=== PATIENT | female | born 1995 | race Caucasian/White ===

== ENCOUNTER 2017-12-18 07:57 | Emergency (ER) | payer SELFPAY ==
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
== END 2017-12-18 09:09 | disposition home or self-care (01) ==
LOC: ER 07:57
DX: L55.0 Sunburn of first degree (principal); Z72.0 Tobacco use; Z91.048 Other nonmedicinal substance allergy status
CPT/HCPCS: 99281

== ENCOUNTER 2019-04-27 18:29 | Emergency (ER) | payer SELFPAY ==
--- NOTE | 2019-04-27 19:07 | EDPHYS ---
Physician Documentation [facility] Name: Jessica Fisher Age: 23 yrs Sex: Female : 1995 Arrival Date: 04/27/2019 Time: 18:31 Bed 19 Private MD: ED Physician Avelino Quinn HPI: 04/27 19:01 This 23 yrs old Female presents to ER via Ambulatory with complaints of Boil. mónica 19:01 The patient presents with an abscess of the right scapular area, The patient presents mónica with cellulitis of the right scapular area, the patient presents with a swollen area of the right scapular area. Description: The affected area is small, confluent, erythematous, fluctuant. Onset: The symptoms/episode began/occurred 2 day(s) ago. Possible cause(s): unknown. Associated signs and symptoms: The patient has no apparent associated signs or symptoms. Modifying factors: the symptoms are alleviated by remaining still, the symptoms are aggravated by pressure, squeezing the lesion and expressing the contents, touching. Severity of symptoms: At their worst the symptoms were mild, in the emergency department the symptoms are unchanged. The patient has not experienced similar symptoms in the past. 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 - Social history:: Smoking status: Patient uses tobacco products, smokes one-half pack cigarettes per day. - Ebola Screening: : No symptoms or risks identified at this time. - Family history:: not pertinent. ROS: 19:01 Constitutional: Negative for fever, chills, and weight loss, Eyes: Negative for injury, mónica pain, redness, and discharge, ENT: Negative for injury, pain, and discharge, Neck: Negative for injury, pain, and swelling, Cardiovascular: Negative for chest pain, palpitations, and edema, Respiratory: Negative for shortness of breath, cough, wheezing, and pleuritic chest pain, Abdomen/GI: Negative for abdominal pain, nausea, vomiting, diarrhea, and constipation, Back: Negative for injury and pain, : Negative for injury, bleeding, discharge, and swelling, MS/Extremity: Negative for injury and deformity, Neuro: Negative for headache, weakness, numbness, tingling, and seizure, Psych: Negative for depression, anxiety, suicide ideation, homicidal ideation, and hallucinations, Allergy/Immunology: Negative for hives, rash, and allergies, Endocrine: Negative for neck swelling, polydipsia, polyuria, polyphagia, and marked weight changes, Hematologic/Lymphatic: Negative for swollen nodes, abnormal bleeding, and unusual bruising. 19:01 Skin: Positive for of the right scapular area. Exam: 19:01 Constitutional: This is a well developed, well nourished patient who is awake, alert, mónica and in no acute distress. Head/Face: Normocephalic, atraumatic. Eyes: Pupils equal round and reactive to light, extra-ocular motions intact. Lids and lashes normal. Conjunctiva and sclera are non-icteric and not injected. Cornea within normal limits. Periorbital areas with no swelling, redness, or edema. ENT: Nares patent. No nasal discharge, no septal abnormalities noted. Tympanic membranes are normal and external auditory canals are clear. Oropharynx with no redness, swelling, or masses, exudates, or evidence of obstruction, uvula midline. Mucous membranes moist. Neck: Trachea midline, no thyromegaly or masses palpated, and no cervical lymphadenopathy. Supple, full range of motion without nuchal rigidity, or vertebral point tenderness. No Meningismus. Chest/axilla: Normal chest wall appearance and motion. Nontender with no deformity. No lesions are appreciated. Cardiovascular: Regular rate and rhythm with a normal S1 and S2. No gallops, murmurs, or rubs. Normal PMI, no JVD. No pulse deficits. Respiratory: Lungs have equal breath sounds bilaterally, clear to auscultation and percussion. No rales, rhonchi or wheezes noted. No increased work of breathing, no retractions or nasal flaring. Abdomen/GI: Soft, non-tender, with normal bowel sounds. No distension or tympany. No guarding or rebound. No evidence of tenderness throughout. MS/ Extremity: Pulses equal, no cyanosis. Neurovascular intact. Full, normal range of motion. Neuro: Awake and alert, GCS 15, oriented to person, place, time, and situation. Cranial nerves II-XII grossly intact. Motor strength 5/5 in all extremities. Sensory grossly intact. Cerebellar exam normal. Normal gait. Psych: Awake, alert, with orientation to person, place and time. Behavior, mood, and affect are within normal limits. 19:01 Back: pain, that is mild, ROM is normal, normal spinal alignment noted. 19:01 Skin: Appearance: Color: erythematous, Temperature: warm, Moisture: normal moisture, petechiae, not noted, ecchymosis, not noted, diaphoresis is not appreciated, swelling, that are mild. Vital Signs: 18:46 BP 129 / 82; Pulse 97; Resp 16 S; Temp 98.0(TE); Pulse Ox 98% on R/A; Weight 44.45 kg aa5 (R); Height 5 ft. 1 in. (154.94 cm) (R); Pain 2/10; 18:46 Body Mass Index 18.52 (44.45 kg, 154.94 cm) aa5 MDM: 18:48 Patient medically screened. [facility] 19:04 Data reviewed: vital signs, nurses notes, lab test result(s), urinalysis, UPT: negative.[facility] 04/27 19:10 Order name: Urine Dipstick--Ancillary (enter results) [facility] 04/27 19:10 Order name: Urine --Ancillary (enter results) [facility] 04/27 19:00 Order name: Urine Dipstick-Ancillary (obtain specimen); Complete Time: 19:09 [facility] 04/27 19:00 Order name: Urine Test (obtain specimen); Complete Time: 19:09 [facility] Administered Medications: 19:14 Drug: Doxycycline 100 mg Route: PO; 19:35 Follow up: Response: No adverse reaction 19:14 Drug: Bactrim (160 mg-800 mg (DS) 1 tablet Route: PO; 19:35 Follow up: Response: No adverse reaction 19:14 Drug: [place] 5 mg-325 mg 1 tabs Route: PO; 19:35 Follow up: Response: No adverse reaction; Pain is decreased; RASS: Alert and Calm (0) Disposition: 04/27/19 19:06 Discharged to Home. Impression: Sebaceous cyst, Cutaneous abscess of back [any part, except buttock]. - Condition is Stable. - Discharge Instructions: Skin Abscess, Epidermal Cyst, [id number], Epidermal Cyst, Skin Abscess, [id number]. - Prescriptions for Tylenol- Codeine #3 300-30 mg Oral Tablet - take 2 tablets by ORAL route every 6 hours As needed; 24 tablet. Doxycycline Hyclate 100 mg Oral Tablet - take 1 tablet by ORAL route every 12 hours; 20 tablet. Bactrim DS 800- 160 mg Oral Tablet - take 1 tablet by ORAL route every 12 hours for 10 days; 20 tablet. - Medication Reconciliation Form, Thank You Letter, Antibiotic Education, Prescription Opioid Use form. - Follow up: Private Physician; When: 2 - 3 days; Reason: Recheck today's complaints, Continuance of care, Re-evaluation by your physician. Follow up: Rehan Morley MD; When: 2 - 3 days; Reason: Recheck today's complaints, Re-evaluation by your physician. - Problem is new. - Symptoms have improved. Signatures: Dispatcher [employer] EDAvelino Rossi MD MD cha Calderon, Audri, RN RN aa5 David Burnett Corrections: (The following items were deleted from the chart) 19:35 19:06 04/27/2019 19:06 Discharged to Home. Impression: Sebaceous cyst; Cutaneous wh abscess of back [any part, except buttock]. Condition is Stable. Forms are Medication Reconciliation Form, Thank You Letter, Antibiotic Education, Prescription Opioid Use. Follow up: Private Physician; When: 2 - 3 days; Reason: Recheck today's complaints, Continuance of care, Re-evaluation by your physician. Follow up: Rehan Morley; When: 2 - 3 days; Reason: Recheck today's complaints, Re-evaluation by your physician. Problem is new. Symptoms have improved. mónica
--- NOTE | 2019-04-27 19:07 | ER ---
Nurse's Notes [facility] Name: Jessica Fisher Age: 23 yrs Sex: Female : 1995 Arrival Date: 04/27/2019 Time: 18:31 Bed 19 Private MD: Diagnosis: Sebaceous cyst;Cutaneous abscess of back [any part, except buttock] Presentation: 04/27 18:45 Presenting complaint: Patient states: "I have 2 bumps around my right shoulder that aa5 have been there for a few months". Transition of care: patient was not received from another setting of care. Onset of symptoms was 2018. Risk Assessment: Do you want to hurt yourself or someone else? Patient reports no desire to harm self or others. Initial Sepsis Screen: Does the patient meet any 2 criteria? No. Patient's initial sepsis screen is negative. Does the patient have a suspected source of infection? No. Patient's initial sepsis screen is negative. Care prior to arrival: None. 18:45 Acuity: BERENICE 5 aa5 18:45 Method Of Arrival: Ambulatory aa5 Triage Assessment: 19:34 General: Behavior is calm, cooperative, appropriate for age. 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 - Social history:: Smoking status: Patient uses tobacco products, smokes one-half pack cigarettes per day. - Ebola Screening: : No symptoms or risks identified at this time. - Family history:: not pertinent. Screenin:32 Abuse screen: Denies threats or abuse. Denies injuries from another. Nutritional screening: No deficits noted. Tuberculosis screening: No symptoms or risk factors identified. Fall Risk None identified. Assessment: 19:10 General: Appears in no apparent distress. comfortable. Pain: Complains of pain in right wh scapular area Pain does not radiate. Pain currently is 8 out of 10 on a pain scale. Quality of pain is described as aching, Pain began 2 months ago. Neuro: Level of Consciousness is awake, alert, obeys commands. Cardiovascular: Capillary refill < 3 seconds. Respiratory: Airway is patent Respiratory effort is even, unlabored, Respiratory pattern is regular, symmetrical. GI: Abdomen is flat, non-distended. : No signs and/or symptoms were reported regarding the genitourinary system. EENT: No signs and/or symptoms were reported regarding the EENT system. Derm: Skin is intact, is healthy with good turgor, Skin is pink, warm \\T\\ dry. normal, Abscess located on right scapular area. Musculoskeletal: Circulation, motion, and sensation intact. Vital Signs: 18:46 BP 129 / 82; Pulse 97; Resp 16 S; Temp 98.0(TE); Pulse Ox 98% on R/A; Weight 44.45 kg aa5 (R); Height 5 ft. 1 in. (154.94 cm) (R); Pain 2/10; 18:46 Body Mass Index 18.52 (44.45 kg, 154.94 cm) aa5 ED Course: 18:31 Patient arrived in ED. as 18:45 Triage completed. aa 18:45 Arm band placed on. aa 18:48 Avelino Quinn MD is Attending Physician. mónica 19:01 Michelle Canales, COLLEEN is Primary Nurse. aj 19:05 Rehan Morley MD is Referral Physician. [facility] 19:32 Patient has correct armband on for positive identification. Bed in low position. Call light in reach. Pulse ox on. NIBP on. 19:34 No provider procedures requiring assistance completed. Patient did not have IV access wh during this emergency room visit. Administered Medications: 19:14 Drug: Doxycycline 100 mg Route: PO; 19:35 Follow up: Response: No adverse reaction 19:14 Drug: Bactrim (160 mg-800 mg (DS) 1 tablet Route: PO; 19:35 Follow up: Response: No adverse reaction 19:14 Drug: [place] 5 mg-325 mg 1 tabs Route: PO; 19:35 Follow up: Response: No adverse reaction; Pain is decreased; RASS: Alert and Calm (0) Outcome: 19:06 Discharge ordered by . [facility] 19:34 Discharged to home ambulatory. 19:34 Condition: good 19:34 Discharge instructions given to patient, Instructed on discharge instructions, follow up and referral plans. no drinking with medication, no driving heavy equipment, medication usage, POC Skin abscess and Epidermal Cyst Demonstrated understanding of instructions, follow-up care, medications, POC Prescriptions given X 3. 19:35 Patient left the ED. Signatures: Michelle Canales RN RN aj1 Avelino Quinn MD MD cha Martinez, Amelia as Calderon, Audri, COLLEEN RN aa5 David Burnett
[2019-04-27] MEDS ORDERED: DOXYCYCLINE 100 MG CAP PO ONE (19:10)
[2019-04-27] MEDS ORDERED: SMZ./TMP. 800/160 MG TABLET ONE (19:10)
[2019-04-27] MEDS ORDERED: HYDROCODONE/APAP 5/325 MG TAB ONE (19:10)
[2019-04-27 19:39] LABS: Urine Blood TRACE (NEG); Urine Glucose NEGATIVE (NEG); Urine Protein NEGATIVE (NEG); Urine Specific Gravity 1.015 (1.005-1.030); Urine pH 7.5 (5.0-7.0)
== END 2019-04-27 19:35 | disposition home or self-care (01) ==
LOC: ER 18:29
DX: L02.212 Cutaneous abscess of back [any part, except buttock and flank] (principal); L72.3 Sebaceous cyst; F17.210 Nicotine dependence, cigarettes, uncomplicated
CPT/HCPCS: 81003; 81025; 99283

== ENCOUNTER 2021-07-20 09:18 | Emergency (ER) | payer SELFPAY ==
--- OUTSIDE RECORDS SUMMARY | 2021-07-20 09:21 | XMS REPORT | Continuity of Care Document ---
:1995 Author Organization [facility] t Address [address] [place] [address] Care Team Providers Name Role Phone Pcp, Does Not Have A Primary Care Physician Daiana CRAMER Attending Clinician Unavailable Diana CONVEYOR LOADERDaiana Attending Clinician Karley BHATTI Attending Clinician Unavailable Jessica PAC, S Attending Clinician Doctor Unassigned, Name Attending Clinician Unavailable Problems Condition Condition Condition Status Onset Resolution Last Treating Co mments Source Name Details Category Date Date Treatment Clinician Date No known No known Disease Unive rs active active ity of problems problems [facility] Allergies, Adverse Reactions, Alerts Allergy Allergy Status Severity Reaction(s) Onset Inactive Treating Comm ents Source Name Type Date Date Clinician NO KNOWN Drug Active Univers ALLERGIE Class ity of S [facility] Social History Social Habit Start Date Stop Date Quantity Comments Source Exposure to Not sure University of SARS-CoV-2 [facility] [place] [facility] (event) [place] Alcohol intake 2021-07-05 2021-07-05 Current drinker Unive rsity of 00:00:00 00:00:00 of alcohol [facility] [place] [facility] (finding) [place] Tobacco use and 2019-05-11 2019-05-11 Never used Universit y of exposure 00:00:00 00:00:00 [facility] Sex [birth year] Universit y of 00:00:00 00:00:00 [facility] Smoking Status Start Date Stop Date Source Current every day smoker 2019-05-11 00:00:00 Uni versity of [facility] Medications Ordered Filled Start Stop Current Ordering Indication Dosage Frequency Signature Comments Components Source Medication Medication Date Date Medication? Clinician (SIG) Name Name ondansetron 2020-07 Yes [id number] 4mg Take 1 Univers (ZOFRAN 2-17 tablet by ity of ODT) 4 mg 00:00: mouth [place] disintegrat 00 every 8 Medic al ing tablet (eight) Branch hours as needed for Nausea and Vomiting (N/V). ondansetron 2020-07 Yes [id number] 4mg Take 1 Univers (ZOFRAN 2-17 tablet by ity of ODT) 4 mg 00:00: mouth [place] disintegrat 00 every 8 Medic al ing tablet (eight) Branch hours as needed for Nausea and Vomiting (N/V). cetirizine 2020-0 Yes [id number] 10mg Take 1 U nivers 10 mg 4-01 tablet by ity of tablet 00:00: mouth at [place] 00 bedtime as Medical needed for Branch Allergies or Runny nose. Prn drainage, cough, itching ondansetron 2020-0 Yes [id number] 8mg Take 1 Univers 8 mg tablet 4-01 tablet by ity of 00:00: mouth [place] 00 every 8 Medical (eight) Branch hours. cetirizine 2020-0 Yes [id number] 10mg Take 1 U nivers 10 mg 4-01 tablet by ity of tablet 00:00: mouth at [place] 00 bedtime as Medical needed for Branch Allergies or Runny nose. Prn drainage, cough, itching ondansetron 2020-0 Yes [id number] 8mg Take 1 Univers 8 mg tablet 4-01 tablet by ity of 00:00: mouth [place] 00 every 8 Medical (eight) Branch hours. cetirizine 2020-0 Yes [id number] 10mg Take 1 U nivers 10 mg 4-01 tablet by ity of tablet 00:00: mouth at [place] 00 bedtime as Medical needed for Branch Allergies or Runny nose. Prn drainage, cough, itching ondansetron 2020-0 Yes [id number] 8mg Take 1 Univers 8 mg tablet 4-01 tablet by ity of 00:00: mouth [place] 00 every 8 Medical (eight) Branch hours. sulfamethox 2018-07 Yes 1{tbl} Take 1 Un chante azole-trime 0-23 tablet by ity of thoprim 15:48: mouth 2 [place] (BACTRIM 31 (two) Medical DS) 800-160 times Branch mg per daily. tablet doxycycline 2018-07 Yes 100mg Take 100 U nivers 100 mg 0-23 mg by ity of capsule 15:48: mouth [place] 31 every 12 Medical (twelve) Branch hours. sulfamethox 2018-07 Yes 1{tbl} Take 1 Un chante azole-trime 0-23 tablet by ity of thoprim 15:48: mouth 2 [place] (BACTRIM 31 (two) Medical DS) 800-160 times Branch mg per daily. tablet doxycycline 2018-07 Yes 100mg Take 100 U nivers 100 mg 0-23 mg by ity of capsule 15:48: mouth [place] 31 every 12 Medical (twelve) Branch hours. sulfamethox 2018-07 Yes 1{tbl} Take 1 Un chante azole-trime 0-23 tablet by ity of thoprim 15:48: mouth 2 [place] (BACTRIM 31 (two) Medical DS) 800-160 times Branch mg per daily. tablet doxycycline 2018-07 Yes 100mg Take 100 U nivers 100 mg 0-23 mg by ity of capsule 15:48: mouth [place] 31 every 12 Medical (twelve) Branch hours. Vital Signs Vital Name Observation Time Observation Value Comments Source Systolic blood 2021-07-18 22:00:00 102 mm[Hg] [facility] Diastolic blood 2021-07-18 22:00:00 60 mm[Hg] [facility] Heart rate 2021-07-18 22:00:00 84 /min [facility] Respiratory rate 2021-07-18 22:00:00 21 /min [facility] Oxygen saturation in 2021-07-18 22:00:00 99 /min [facility] Arterial blood by [facility] Pulse oximetry Branch Body temperature 2021-07-18 19:46:00 37.06 Angela [facility] Body weight 2021-07-18 19:46:00 45.36 kg [facility] BMI 2021-07-18 19:46:00 18.89 kg/m2 [facility] Systolic blood 2021-07-05 19:25:00 133 mm[Hg] [facility] Diastolic blood 2021-07-05 19:25:00 69 mm[Hg] [facility] of pressure [facility] Heart rate 2021-07-05 19:25:00 115 /min [facility] Body temperature 2021-07-05 19:25:00 37.94 Angela [facility] Respiratory rate 2021-07-05 19:25:00 18 /min [facility] Body weight 2021-07-05 19:25:00 45.36 kg [facility] BMI 2021-07-05 19:25:00 18.89 kg/m2 [facility] Oxygen saturation in 2021-07-05 19:25:00 98 /min [facility] Arterial blood by [facility] Pulse oximetry [place] Procedures Procedure Date / Time Performing Clinician Source Performed COVID-19 (ID NOW RAPID 2021-07-18 21:16:00 Lemuel Cramer [facility] TESTING) Medical [place] BASIC METABOLIC PANEL 2021-07-18 19:55:00 Lemuel Cramer [facility] (NA, K, CL, CO2, [facility] GLUCOSE, BUN, CREATININE, CA) CBC WITH DIFF 2021-07-18 19:55:00 Lemuel Cramer [facility] D-DIMER 2021-07-18 19:55:00 Lemuel Cramer [facility] URINE DRUG (IMMUNOASSAY) 2021-07-18 19:55:00 [facility] SCREEN W/O REFLEX POCT TEST 2021-07-18 19:54:00 Lemuel Cramer [facility] URINALYSIS 2021-07-18 19:53:00 Lemuel Cramer [facility] RAPID STREP SCREEN FOR 2021-07-05 23:08:00 Shonda Bhatti [facility] GROUP A [facility] RAPID INFLUENZA A/B 2021-07-05 23:08:00 Shonda Bhatti [facility] COVID-19 (ID NOW RAPID 2021-07-05 23:08:00 Shonda Bhatti [facility] TESTING) [facility] NOTICE OF PRIVACY 2021-07-05 19:14:20 Doctor Unassigned, No Univ [facility] PRACTICES Name Medical Branch CONSENT/REFUSAL FOR 2021-07-05 19:14:02 [facility], [facility] Encounters Start End Encounter Admission Attending Care Care Encounter Source Date/Time Date/Time Type Type Clinicians Facility Department ID 2021-07-18 2021-07-18 Emergency [facility] [id number] Univers 13:53:00 16:54:00 LEMUEL ity of [facility] 2021-07-18 2021-07-18 Emergency [facility] [id number] Univers 13:53:00 16:54:00 Lemuel BERGER [id number] ity [facility] [id number] [facility] [id number] [place] [id number] Branch 2021-07-05 2021-07-05 Emergency [facility] [id number] Univers 13:26:00 18:27:00 SHONDA ity [facility] 2021-07-05 2021-07-05 Emergency [facility] [id number] Univers 13:26:00 18:27:00 Shonda Crandall AB [id number] i ty [facility] [id number] [facility] [id number] [place] [address] Branch 2021-07-05 2021-07-05 Orders Doctor GLEASON [id number] Univers 00:00:00 00:00:00 Only Unassigned, KERRY [id number] ity of [place] [facility] [id number] [place] [id number] [facility] 009 Branch Results Test Description Test Time Test Comments Results Result Comments Source D-DIMER 2021-07-18 20:29:28 Test Item Value Reference Range Interpretation Comme nts D-DIMER (test code = See_Comment [Autom ated message] The [id number]) system which ge nerated this result tra nsmitted reference range : <0.41 ?g/mL (). Th e reference range was not used to interpr et this result as normal/abnormal . MANUEL (test code = MANUEL) This test may be used in conjunction with a clinical pretest probability (PTP) assessment model to exclude venous thromboembolism (VTE) in patients suspected of deep venous thrombosis (DVT) and pulmonary embolism (PE) A D-Dimer value less than 0.50 ?g/ml (FEU) has a negative predicative value of 96 to 100% (95% CI)and 97 to 100% (95% CI) as an aid in the diagnosis of deep vein thrombosis (DVT) and pulmonary embolism when there is low or moderate pretest probability of PE or DVT. D-Dimer values are expressed in initial fibrinogen equivalent units (FEU)" The assay results should be used with other information, including the clinical context, in forming a diagnosis. Lab Interpretation Normal (test code = 84721-0) [facility] METABOLIC PANEL (NA, K, CL, CO2, GLUCOSE, BUN, CREATININE, CA)2021-07-18 20:28:11 Test Item Value Reference Range Interpretation Comments NA (test code = 136 mmol/L 135-145 7509725843) K (test code = 4.0 mmol/L 3.5-5.0 0154423633) CL (test code = 106 mmol/L 98-108 6483393995) CO2 TOTAL (test code = 21 mmol/L 23-31 L 9480961217) AGAP (test code = 2-16 2350451307) BUN (test code = 7 mg/dL 7-23 6938465292) GLUCOSE (test code = 120 mg/dL 70-110 H 8302435748) CREATININE (test code = 0.59 mg/dL 0.50-1.04 9444359029) CALCIUM (test code = 8.3 mg/dL 8.6-10.6 L 9545962389) eGFR (test code = mL/min/1.73m2 3410070910) MANUEL (test code = MANUEL) Association of Glomerular Filtration Rate (GFR) and Staging of Kidney Disease* + --+ --+ ------+| GFR (mL/min/1.73 m2) ?| With Kidney Damage ?| ?Without Kidney Damage+ --------+ --------+ +| ?>90 ?| ?Stage one ?| ? Normal ?+ ---+ ---+ -------+| ?60-89 ?| ?Stage two ?| ? Decreased GFR ? + --+ --+ ------+| ?30-59 ?| ?Stage three ?| ? Stage three ? + --+ --+ ------+| ?15-29 ?| ?Stage four ? | ? Stage four ?+ ---+ ---+ -------+| ?<15 (or dialysis) ? ?| ?Stage five ? | ? Stage five ?+ ---+ ---+ -------+ *Each stage assumes the associated GFR level has been in effect for at least three months. ?Stages 1 to 5, with or without kidney disease, indicate chronic kidney disease. Notes: Determination of stages one and two (with eGFR >59mL/min/1.73 m2) requires estimation of kidney damage for at least three months as defined by structural or functional abnormalities of the kidney, manifested by either:Pathological abnormalities or Markers of kidney damage (including abnormalities in the composition of the blood or urine or abnormalities in imaging tests). Lab Interpretation Abnormal (test code = 85204-7) [facility] WITH [id number] 20:14:45 Test Item Value Reference Range Interpretation Comments WBC (test code = See_Comment [Automated 8290-2) message] The sy stem which generated this result transmitted reference range : 4.30 - 11.10 10*3/?L. The reference range was not used to interpret this result as normal/abnormal . RBC (test code = See_Comment L [Automated 419-8) message] The sy stem which generated this result transmitted reference range : 3.93 - 5.25 10*6/?L. The reference range was not used to interpret this result as normal/abnormal . HGB (test code = 12.1 g/dL 11.6-15.0 718-7) HCT (test code = 36.3 % 35.7-45.2 4544-3) MCV (test code = 96.8 fL 80.6-95.5 H 787-2) MCH (test code = 32.3 pg 25.9-32.8 785-6) MCHC (test code = 33.3 g/dL 31.6-35.1 786-4) RDW-SD (test code = 41.6 fL 39.0-49.9 51899-5) RDW-CV (test code = 11.8 % 12.0-15.5 L 788-0) PLT (test code = See_Comment [Automated 777-3) message] The sy stem which generated this result transmitted reference range : 166 - 358 10*3/ ?L. The reference r moon was not used to interpret this result as normal/abnormal . MPV (test code = 12.2 fL 9.5-12.9 59954-7) NRBC/100 WBC (test See_Comment [Automat ed code = 7047628877) message] The system which generated this result transmitted reference range : 0.0 - 10.0 /100 WBCs. The refer ence range was not u sed to interpret th is result as normal/abnormal . NRBC x10^3 (test code <0.01 See_Comment [Auto mated = 0993223567) message] The s ystem which generated this result transmitted reference range : 10*3/?L. The reference range was not used to interpret this result as normal/abnormal . GRAN MAT (NEUT) % 48.6 % (test code = 770-8) IMM GRAN % (test code 0.30 % = 4074169107) LYMPH % (test code = 36.2 % 736-9) MONO % (test code = 10.9 % 5905-5) EOS % (test code = 3.4 % 713-8) BASO % (test code = 0.6 % 706-2) GRAN MAT x10^3(ANC) 3.26 10*3/uL 1.88-7.09 (test code = 5682378521) IMM GRAN x10^3 (test <0.03 0.00-0.06 code = 9307670477) LYMPH x10^3 (test code 2.43 10*3/uL 1.32-3.29 = 731-0) MONO x10^3 (test code 0.73 10*3/uL 0.33-0.92 = 742-7) EOS x10^3 (test code = 0.23 10*3/uL 0.03-0.39 711-2) BASO x10^3 (test code 0.04 10*3/uL 0.01-0.07 = 704-7) Lab Interpretation Abnormal (test code = 24739-2) [id number] Test Item Value Reference Range Interpretation Comments POCT PREG (test code = 1605) negative On board controls acceptable with present C Line (test code = 3574) POCT PREG LOT # (test code = 3575) [id number] POCT PREG TEST DATE (test code = 3576) Lab Interpretation (test code = Normal 69634-1) [facility]
[2021-07-20 11:11] LABS: Urine Blood 2+ (Negative); Urine Glucose Negative (Negative); Urine Protein Negative (Negative); Urine Specific Gravity <=1.005 (1.005-1.030); Urine pH 6.5 (5.0-7.0)
--- NOTE | 2021-07-20 11:19 | RAD REPORT ---
EXAM DESCRIPTION: RAD - Chest Single View - 07/20/2021 10:57 am CLINICAL HISTORY: PALPITATIONS COMPARISON: No relevant comparison TECHNIQUE: AP portable chest image was obtained 07/20/2021 10:57 am . FINDINGS: Lungs are clear. Heart and vasculature are normal. No measurable pleural effusion and no p neumothorax. No acute bony abnormality seen. No acute aortic findings suspected. IMPRESSION: No acute cardiopulmonary process.
[2021-07-20 11:34] LABS: Absolute Lymphocytes (CBC) 1.3 K/uL (0.7-4.9); Hematocrit 35.2 % (36.0-45.0); Lymphocytes % 21.9 % (15.3-44.8); MPV 10.5 fL (7.6-11.3); RBC Red Blood Cell Count 3.64 M/uL (3.86-4.86)
[2021-07-20] MEDS ORDERED: NA CHLORIDE 0.9% 1,000 ML ONE (11:36)
[2021-07-20 11:37] LABS: Protime INR 1.22
[2021-07-20 11:42] LABS: Barbiturates NEGATIVE (NEGATIVE); Benzodiazepines NEGATIVE (NEGATIVE); Cocaine NEGATIVE (NEGATIVE); METHAMPHETAM NEGATIVE (NEGATIVE); Methadone NEGATIVE (NEGATIVE); Opiates NEGATIVE (NEGATIVE); Phencyclidine NEGATIVE (NEGATIVE); THC Cannibis POSITIVE (NEGATIVE)
[2021-07-20 12:03] LABS: ALT/SGPT 15 U/L (12-78); AST/SGOT 6 U/L (15-37); Albumin 3.8 g/dL (3.4-5.0); Alkaline Phosphatase 44 U/L (45-117); BUN Blood Urea Nitrogen 6 mg/dL (7-18); Bicarbonate 23 mmol/L (21-32); Bilirubin Direct 0.1 mg/dL (0-0.2); Bilirubin Total 0.4 mg/dL (0.2-1.0); Glucose Level 91 mg/dL (74-106); NT PRO-BNP 79 pg/mL (<125); Potassium 3.6 mmol/L (3.5-5.1); Sodium Level 140 mmol/L (136-145); Troponin (Emerg Dept Use Only) < 0.02 ng/mL (0.0-0.045)
--- NOTE | 2021-07-20 12:17 | ER ---
Nurse's Notes [facility] Name: Jessica Fisher Age: 26 yrs Sex: Female : 1995 Arrival Date: 07/20/2021 Time: 09:21 Bed 9 Private MD: Diagnosis: Palpitations Presentation: 07/20 09:49 Chief complaint: Patient states: my heart started beating fast out of nowhere, it comes iw and goes , lasts a minute or two and then comes back, COVID + X 3 weeks ago. Coronavirus screen: Client presents with at least one sign or symptom that may indicate coronavirus-19. Ebola Screen: Patient negative for fever greater than or equal to 101.5 degrees Fahrenheit, and additional compatible Ebola Virus Disease symptoms Patient denies exposure to infectious person. Patient denies travel to an Ebola-affected area in the 21 days before illness onset. No symptoms or risks identified at this time. Initial Sepsis Screen: Does the patient meet any 2 criteria? No. Patient's initial sepsis screen is negative. Does the patient have a suspected source of infection? No. Patient's initial sepsis screen is negative. Risk Assessment: Do you want to hurt yourself or someone else? Patient reports no desire to harm self or others. Onset of symptoms was July 18, 2021. 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 - Social history:: Smoking status: Patient reports the use of cigarette tobacco products, smokes one-half pack cigarettes per day. Screenin:09 Abuse screen: Denies threats or abuse. Nutritional screening: No deficits noted. al4 Tuberculosis screening: No symptoms or risk factors identified. Fall Risk No fall in past 12 months (0 pts). No IV (0 pts). Ambulatory Aid- None/Bed Rest/Nurse Assist (0 pts). Gait- Normal/Bed Rest/Wheelchair (0 pts) Mental Status- Oriented to own ability (0 pts). Total Doty Fall Scale indicates No Risk (0-24 pts). Assessment: 10:05 General: Appears in no apparent distress. comfortable, Behavior is calm, cooperative, al4 appropriate for age, patient states she came in today because "my heart will randomly beat really fast and it scares me." patient said this has been going on for 3 days now along with dizziness, and weakness. patient tested positive for covid 3 weeks ago and then again on this past . patient denies n/v/d and states no abnormal restroom habits. pt states she will sometimes get SOB with activity. . 10:05 Neuro: Level of Consciousness is awake, alert, obeys commands, Oriented to person, al4 place, time. Cardiovascular: Reports palpitations, "shortness of breath with activity" Heart tones present Capillary refill < 3 seconds Patient's skin is warm and dry. 10:05 Respiratory: Airway is patent Respiratory effort is even, unlabored, Respiratory al4 pattern is regular, symmetrical, Breath sounds are clear bilaterally. GI: No signs and/or symptoms were reported involving the gastrointestinal system. : No signs and/or symptoms were reported regarding the genitourinary system. EENT: No signs and/or symptoms were reported regarding the EENT system. Derm: No signs and/or symptoms reported regarding the dermatologic system. Musculoskeletal: No signs and/or symptoms reported regarding the musculoskeletal system. 10:05 Pain: Denies pain. al4 11:00 Reassessment: No changes from previously documented assessment. Patient and/or family al4 updated on plan of care and expected duration. Pain level reassessed. 12:00 Reassessment: No changes from previously documented assessment. Patient and/or family al4 updated on plan of care and expected duration. Pain level reassessed. Patient is alert, oriented x 3, equal unlabored respirations, skin warm/dry/pink. 12:30 Reassessment: No changes from previously documented assessment. Patient and/or family al4 updated on plan of care and expected duration. Pain level reassessed. patient refused fluid bolus and stated she would just go home and hydrate. physician gave verbal orders - okay to discharge patient before giving fluids. . Vital Signs: 09:49 BP 126 / 64; Pulse 89; Resp 16; Temp 98.2; Pulse Ox 99% on R/A; Weight 45.36 kg; Height iw 5 ft. 1 in. (154.94 cm); 10:05 BP 123 / 69; Pulse 72; Resp 18 S; Pulse Ox 100% on R/A; al4 11:50 BP 130 / 78; Pulse 71; Resp 18; Pulse Ox 100% ; Pain 0/10; al4 12:30 BP 131 / 73; Pulse 78; Resp 16 S; Pulse Ox 100% on R/A; Pain 0/10; al4 09:49 Body Mass Index 18.89 (45.36 kg, 154.94 cm) iw ED Course: 09:21 Patient arrived in ED. mr 09:51 Triage completed. iw 09:51 Arm band placed on. iw 09:59 Vic Crawford NP is PHCP. pm1 09:59 Avelino Quinn MD is Attending Physician. pm1 10:05 Bob Fitzgerald is Primary Nurse. al4 10:09 Patient has correct armband on for positive identification. Bed in low position. Call al4 light in reach. 10:57 XRAY Chest (1 view) In Process Unspecified. EDMS 11:10 Urine collected: clean catch specimen, clear, sediment noted. mb4 11:25 Initial lab(s) drawn, by co, sent to lab. Inserted saline lock: 20 gauge in right mb4 antecubital area, using aseptic technique. ,using aseptic technique. IV removed after blood collection due to infiltration. Blood collected. 11:26 EKG done, by ED staff, reviewed by Vic Crawford NP. mb4 11:44 Missed attempt(s): 22 gauge in left forearm. al4 12:01 Basic Metabolic Panel Sent. mb4 12:01 LFT's Sent. mb4 12:01 Magnesium Sent. mb4 12:01 NT PRO-BNP Sent. mb4 12:01 Troponin (emerg Dept Use Only) Sent. mb4 12:31 No provider procedures requiring assistance completed. Patient did not have IV access al4 during this emergency room visit. Administered Medications: 12:33 Not Given (Physician Discretion): NS 0.9% 1000 ml IV at 1000 ml once al4 Outcome: 12:16 Discharge ordered by . pm1 12:31 Discharged to home ambulatory. al4 12:31 Condition: stable 12:31 Discharge instructions given to patient, Instructed on discharge instructions, follow up and referral plans. Demonstrated understanding of instructions, follow-up care. 12:34 Patient left the ED. al4 Signatures: Dispatcher [employer] Craoline Rivera Holly Malave, COLLEEN RN iw Vic Crawford, DANIEL SWIMMING POOL MAINTENANCE pm1 Essence Saucedo mb4 Bob Fitzgerald al4 Corrections: (The following items were deleted from the chart) 11:49 10:05 General: patient states she came in today because "my heart will randomly beat al4 really fast and it scares me." patient said this has been going on for 3 days now along with dizziness, and weakness. patient tested positive for covid 3 weeks ago and then again on this past . patient denies n/v/d and states no abnormal restroom habits. pt states she will sometimes get SOB with activity. . al4 11:49 10:05 General: patient states she came in today because "my heart will randomly beat al4 really fast and it scares me." patient said this has been going on for 3 days now along with dizziness, and weakness. patient tested positive for covid 3 weeks ago and then again on this past . patient denies n/v/d and states no abnormal restroom habits. pt states she will sometimes get SOB with activity. . al4 11:49 10:10 General: Behavior is al4 al4
--- NOTE | 2021-07-20 12:17 | EDPHYS ---
Physician Documentation [facility] Name: Jessica Fisher Age: 26 yrs Sex: Female : 1995 Arrival Date: 07/20/2021 Time: 09:21 Bed 9 Private MD: ED Physician Avelino Quinn HPI: 07/20 11:05 This 26 yrs old Female presents to ER via Ambulatory with complaints of Covid+, Fast pm1 heart rate. 11:05 The patient presents with a history of heart racing. Context: The symptoms occur at pm1 rest. Onset: The symptoms/episode began/occurred this morning. Duration: The patient or guardian reports a single episode, that is now resolved. Modifying factors: The symptoms are aggravated by Attributes to covid. Patient was diagnosed with covid 3 weeks ago The symptoms are alleviated by nothing. Associated signs and symptoms: Pertinent positives: chest pain, shortness of breath with palpitations. 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 - Social history:: Smoking status: Patient reports the use of cigarette tobacco products, smokes one-half pack cigarettes per day. ROS: 07/19 11:05 Constitutional: Negative for fever, chills, and weight loss. pm1 Abdomen/GI: Negative for abdominal pain, nausea, vomiting, diarrhea, and constipation, Back: Negative for injury and pain, MS/Extremity: Negative for injury and deformity, Skin: Negative for injury, rash, and discoloration, Neuro: Negative for headache, weakness, numbness, tingling, and seizure. Cardiovascular: Positive for chest pain, palpitations, Negative for edema, orthopnea. Respiratory: Positive for shortness of breath, Negative for cough. All other systems are negative. Exam: 11:05 Constitutional: This is a well developed, well nourished patient who is awake, alert, pm1 and in no acute distress. Head/Face: Normocephalic, atraumatic. Chest/axilla: Normal chest wall appearance and motion. Nontender with no deformity. No lesions are appreciated. Cardiovascular: Regular rate and rhythm with a normal S1 and S2. No gallops, murmurs, or rubs. Normal PMI, no JVD. No pulse deficits. Respiratory: Lungs have equal breath sounds bilaterally, clear to auscultation and percussion. No rales, rhonchi or wheezes noted. No increased work of breathing, no retractions or nasal flaring. Abdomen/GI: Soft, non-tender, with normal bowel sounds. No distension or tympany. No guarding or rebound. No evidence of tenderness throughout. Skin: Warm, dry with normal turgor. Normal color with no rashes, no lesions, and no evidence of cellulitis. MS/ Extremity: Pulses equal, no cyanosis. Neurovascular intact. Full, normal range of motion. 11:05 Eyes: Exam is negative for acute changes, Periorbital structures: appear normal, Pupils: no acute changes, Extraocular movements: no acute changes. 11:05 ENT: Exam is negative for acute changes, Mouth: no acute changes, Lips: normal, moist, Oral mucosa: normal, pink and intact, moist. 11:05 Neuro: Exam negative for acute changes, Orientation: is normal, Mentation: is normal, Motor: moves all fours. Vital Signs: 07/20 09:49 BP 126 / 64; Pulse 89; Resp 16; Temp 98.2; Pulse Ox 99% on R/A; Weight 45.36 kg; Height iw 5 ft. 1 in. (154.94 cm); 10:05 BP 123 / 69; Pulse 72; Resp 18 S; Pulse Ox 100% on R/A; al4 11:50 BP 130 / 78; Pulse 71; Resp 18; Pulse Ox 100% ; Pain 0/10; al4 12:30 BP 131 / 73; Pulse 78; Resp 16 S; Pulse Ox 100% on R/A; Pain 0/10; al4 09:49 Body Mass Index 18.89 (45.36 kg, 154.94 cm) iw MDM: 10:01 Patient medically screened. [facility] 12:14 ED course: Patient elected to go home to drink fluids instead IV fluids ordered in the pm1 ER. 12:15 Data reviewed: vital signs. Data interpreted: Pulse oximetry: on room air is 100 %. pm1 Interpretation: normal. Counseling: I had a detailed discussion with the patient and/or guardian regarding: the historical points, exam findings, and any diagnostic results supporting the discharge/admit diagnosis, lab results, radiology results, the need for outpatient follow up, to return to the emergency department if symptoms worsen or persist or if there are any questions or concerns that arise at home. 07/20 10:47 Order name: Basic Metabolic Panel; Complete Time: 12:07 pm1 07/20 10:47 Order name: CBC with Diff; Complete Time: 12:07 pm1 07/20 10:47 Order name: LFT's; Complete Time: 12:07 pm1 07/20 10:47 Order name: Magnesium; Complete Time: 12:07 pm1 07/20 10:47 Order name: NT PRO-BNP; Complete Time: 12:07 pm1 07/20 10:47 Order name: PT-INR; Complete Time: 12:07 pm1 07/20 10:22 Order name: EKG; Complete Time: 10:23 kj1 07/20 10:47 Order name: Troponin (emerg Dept Use Only); Complete Time: 12:07 pm1 07/20 10:47 Order name: XRAY Chest (1 view); Complete Time: 11:24 pm1 07/20 10:47 Order name: UDS; Complete Time: 12:07 pm1 07/20 10:47 Order name: D-Dimer; Complete Time: 12:07 pm1 07/20 10:47 Order name: TSH; Complete Time: 12:07 pm1 07/20 11:10 Order name: Urine Dipstick-Ancillary; Complete Time: 11:18 EDMS 07/20 10:47 Order name: Cardiac monitoring; Complete Time: 12:01 pm1 07/20 10:47 Order name: EKG - Nurse/Tech; Complete Time: 11:37 pm1 07/20 10:47 Order name: Labs collected and sent; Complete Time: 11:37 pm1 07/20 10:47 Order name: O2 Per Protocol; Complete Time: 11:37 pm1 07/20 10:47 Order name: O2 Sat Monitoring; Complete Time: 11:37 pm1 Administered Medications: 12:33 Not Given (Physician Discretion): NS 0.9% 1000 ml IV at 1000 ml once al4 Disposition: 07/21 04:36 Co-signature as Attending Physician, Avelino Quinn MD I agree with the assessment and mónica plan of care. Disposition Summary: 07/20/21 12:16 Discharge Ordered Location: Home pm1 Problem: new pm1 Symptoms: have improved pm1 Condition: Stable pm1 Diagnosis - Palpitations pm1 Followup: pm1 - With: Emergency Department - When: As needed - Reason: Worsening of condition Followup: pm1 - With: Private Physician - When: 2 - 3 days - Reason: Recheck today's complaints, Continuance of care, Re-evaluation by your physician Discharge Instructions: - Discharge Summary Sheet pm1 - Palpitations pm1 Forms: - Medication Reconciliation Form pm1 - Thank You Letter pm1 - Antibiotic Education pm1 - Prescription Opioid Use pm1 Signatures: Dispatcher [employer] EDMS Avelino Quinn MD MD cha Williams, Irene RN RN Vic Disla NP CITY SURVEYOR pm1 Bob Fitzgerald al4 Corrections: (The following items were deleted from the chart) 07/20 12:33 10:47 IV Saline Lock ordered. pm1 al4
[2021-07-20 12:55] VITALS: TEMP 98.2
[2021-07-20 12:59] VITALS: O2SAT 100
[2021-07-20 13:02] VITALS: BP 131/73
== END 2021-07-20 12:34 | disposition home or self-care (01) ==
LOC: ER 09:18
DX: U07.1 COVID-19 (principal); I49.8 Other specified cardiac arrhythmias; R00.2 Palpitations
CPT/HCPCS: 36415; 71045; 80048; 80076; 80307; 81003; 83735; 83880; 84443; 84484; 85025; 85379; 85610; 93005; 99284; J7030

== ENCOUNTER 2021-07-21 11:23 | Emergency (ER) | payer SELFPAY ==
--- OUTSIDE RECORDS SUMMARY | 2021-07-21 11:26 | XMS REPORT | Continuity of Care Document ---
:1995 Author Organization [facility] t Address [address] [place] [address] Care Team Providers Name Role Phone Pcp, Does Not Have A Primary Care Physician Daiana CRAMER Attending Clinician Unavailable Diana STOCKROOM KEEPERDaiana Attending Clinician Karley BHATTI Attending Clinician Unavailable Jessica PAC, S Attending Clinician Doctor Unassigned, Name Attending Clinician Unavailable Problems Condition Condition Condition Status Onset Resolution Last Treating Co mments Source Name Details Category Date Date Treatment Clinician Date No known No known Disease Unive rs active active ity of problems problems [facility] Allergies, Adverse Reactions, Alerts Allergy Allergy Status Severity Reaction(s) Onset Inactive Treating Comm ents Source Name Type Date Date Clinician NO KNOWN Drug Active Univers ALLERGIE Class ity of S [facility] Social History Social Habit Start Date Stop Date Quantity Comments Source Exposure to Not sure University of SARS-CoV-2 [facility] (event) [place] Alcohol intake 2021-07-05 2021-07-05 Current drinker Unive rsity of 00:00:00 00:00:00 of alcohol [facility] (finding) [place] Tobacco use and 2019-05-11 2019-05-11 Never used Universit y of exposure 00:00:00 00:00:00 [facility] Sex Ass[birth year] Universit y of 00:00:00 00:00:00 [facility] Smoking Status Start Date Stop Date Source Current every day smoker 2019-05-11 00:00:00 Uni versity of [facility] Medications Ordered Filled Start Stop Current Ordering Indication Dosage Frequency Signature Comments Components Source Medication Medication Date Date Medication? Clinician (SIG) Name Name ondansetron 2020-07 Yes [id number] 4mg Take 1 Univers (ZOFRAN 2-17 tablet by ity of ODT) 4 mg 00:00: mouth [place] disintegrat 00 every 8 Medic al ing tablet (eight) Branch hours as needed for Nausea and Vomiting (N/V). ondansetron 2020-07 Yes [id number] 4mg Take 1 Univers (ZOFRAN 2-17 tablet by ity of ODT) 4 mg 00:00: mouth [place] disintegrat 00 every 8 Medic al ing tablet (eight) Branch hours as needed for Nausea and Vomiting (N/V). cetirizine 2020-0 Yes [id number] 10mg Take 1 U nivers 10 mg 4-01 tablet by ity of tablet 00:00: mouth at [place] 00 bedtime as Medical needed for Branch Allergies or Runny nose. Prn drainage, cough, itching ondansetron 2020-0 Yes [id number] 8mg Take 1 Univers 8 mg tablet 4-01 tablet by ity of 00:00: mouth [place] 00 every 8 Medical (eight) Branch hours. cetirizine 2020-0 Yes [id number] 10mg Take 1 U nivers 10 mg 4-01 tablet by ity of tablet 00:00: mouth at [place] 00 bedtime as Medical needed for Branch Allergies or Runny nose. Prn drainage, cough, itching ondansetron 2020-0 Yes [id number] 8mg Take 1 Univers 8 mg tablet 4-01 tablet by ity of 00:00: mouth [place] 00 every 8 Medical (eight) Branch hours. cetirizine 2020-0 Yes [id number] 10mg Take 1 U nivers 10 mg 4-01 tablet by ity of tablet 00:00: mouth at [place] 00 bedtime as Medical needed for Branch Allergies or Runny nose. Prn drainage, cough, itching ondansetron 2020-0 Yes [id number] 8mg Take 1 Univers 8 mg tablet [...] Source Systolic blood 2021-07-18 22:00:00 102 mm[Hg] [facility] Diastolic blood 2021-07-18 22:00:00 60 mm[Hg] [facility] Heart rate 2021-07-18 22:00:00 84 /min [facility] Respiratory rate 2021-07-18 22:00:00 21 /min [facility] Oxygen saturation in 2021-07-18 22:00:00 99 /min [facility] Arterial blood by [facility] Pulse oximetry Branch Body temperature 2021-07-18 19:46:00 37.06 Angela [facility] Body weight 2021-07-18 19:46:00 45.36 kg [facility] BMI 2021-07-18 19:46:00 18.89 kg/m2 [facility] Systolic blood 2021-07-05 19:25:00 133 mm[Hg] [facility] Diastolic blood 2021-07-05 19:25:00 69 mm[Hg] [facility] of pressure [facility] Heart rate 2021-07-05 19:25:00 115 /min [facility] Body temperature 2021-07-05 19:25:00 37.94 Angela [facility] Respiratory rate 2021-07-05 19:25:00 18 /min [facility] Body weight 2021-07-05 19:25:00 45.36 kg [facility] BMI 2021-07-05 19:25:00 18.89 kg/m2 [facility] Oxygen saturation in 2021-07-05 19:25:00 98 /min [facility] Arterial blood by [facility] Pulse oximetry [place] Procedures Procedure Date / Time Performing Clinician Source Performed COVID-19 (ID NOW RAPID 2021-07-18 21:16:00 Lemuel Cramer [facility] TESTING) Medical [place] BASIC METABOLIC PANEL 2021-07-18 19:55:00 Lemuel Cramer [facility] (NA, K, CL, CO2, [facility] GLUCOSE, BUN, CREATININE, CA) CBC WITH DIFF 2021-07-18 19:55:00 Lemuel Cramer [facility] D-DIMER 2021-07-18 19:55:00 Lemuel Cramer [facility] URINE DRUG (IMMUNOASSAY) 2021-07-18 19:55:00 [facility] nch SCREEN W/O REFLEX POCT TEST 2021-07-18 19:54:00 Lemuel Cramer [facility] URINALYSIS 2021-07-18 19:53:00 Lemuel Cramer [facility] RAPID STREP SCREEN FOR 2021-07-05 23:08:00 Shonda Bhatti [facility] GROUP A [facility] RAPID INFLUENZA A/B 2021-07-05 23:08:00 Shonda Bhatti [facility] COVID-19 (ID NOW RAPID 2021-07-05 23:08:00 Shonda Bhatti [facility] TESTING) [facility] NOTICE OF PRIVACY 2021-07-05 19:14:20 Doctor Unassigned, No Univ [facility] PRACTICES Name Medical Branch CONSENT/REFUSAL FOR 2021-07-05 19:14:02 Doctor [facility]igned, [facility] Name [facility] Encounters Start End Encounter Admission Attending Care Care Encounter Source Date/Time Date/Time Type Type Clinicians Facility Department ID 2021-07-18 2021-07-18 [facility] [id number] Univers 13:53:00 16:54:00 LEMUEL ity of [facility] 2021-07-18 2021-07-18 Emergency [facility] [id number] Univers 13:53:00 16:54:00 Lemuel BERGER [id number] ity [facility] [id number] [facility] [id number] [place] [id number] Branch 2021-07-05 2021-07-05 Emergency [facility] [id number] Univers 13:26:00 18:27:[address] [facility] 2021-07-05 2021-07-05 Emergency [facility] [id number] Univers 13:26:00 18:27:00 Shonda Crandall AB [id number] i ty [facility] [id number] [facility] [id number] [place] [id number] Branch 2021-07-05 2021-07-05 Orders Doctor GLEASON [id number] Univers 00:00:00 00:00:00 Only Unassigned, KERRY [id number] ity of [place] [facility] [id number] [facility] 009 Branch Results Test Description Test Time Test Comments Results Result Comments Source D-DIMER 2021-07-18 20:29:28 Test Item Value Reference Range Interpretation Comme nts D-DIMER (test code = See_Comment [Autom ated message] The [id number]) system which ge nerated this result tra [...] diagnosis. Lab Interpretation Normal (test code = 27884-6) [facility] METABOLIC PANEL (NA, K, CL, CO2, GLUCOSE, BUN, CREATININE, CA)2021-07-18 20:28:11 Test Item Value Reference Range Interpretation Comments NA (test code = 136 mmol/L 135-145 8914595677) K (test code = 4.0 mmol/L 3.5-5.0 5253568718) CL (test code = 106 mmol/L 98-108 4231272893) CO2 TOTAL (test code = 21 mmol/L 23-31 L 7300530202) AGAP (test code = 2-16 0264467063) BUN (test code = 7 mg/dL 7-23 5458848852) GLUCOSE (test code = 120 mg/dL 70-110 H 9089965167) CREATININE (test code = 0.59 mg/dL 0.50-1.04 6630703678) CALCIUM (test code = 8.3 mg/dL 8.6-10.6 L 5667752762) eGFR (test code = mL/min/1.73m2 0973218758) MANUEL (test code = MANUEL) Association of [...] tests). Lab Interpretation Abnormal (test code = 75198-0) [facility] WITH [id number] 20:14:45 Test Item Value Reference Range Interpretation Comments WBC (test code = See_Comment [Automated 0690-2) message] The sy stem which generated this result transmitted reference range : 4.30 - 11.10 10*3/?L. The reference range was not used to interpret this result as normal/abnormal . RBC (test code = See_Comment L [Automated 569-8) message] The sy stem which generated this [...] RDW-SD (test code = 41.6 fL 39.0-49.9 41676-0) RDW-CV (test code = 11.8 % 12.0-15.5 L 788-0) PLT (test code = See_Comment [Automated 777-3) message] The sy stem which generated this result transmitted reference range : 166 - 358 10*3/ ?L. The reference r moon was not used to interpret this result as normal/abnormal . MPV (test code = 12.2 fL 9.5-12.9 92852-2) NRBC/100 WBC (test See_Comment [Automat ed code = 1073090619) message] The system which generated this result transmitted reference range : 0.0 - 10.0 /100 WBCs. The refer ence range was not u sed to interpret th is result as normal/abnormal . NRBC x10^3 (test code <0.01 See_Comment [Auto mated = 7660678287) message] The s ystem which generated this result transmitted reference range : 10*3/?L. The reference range was not used to interpret this result as normal/abnormal . GRAN MAT (NEUT) % 48.6 % (test code = 770-8) IMM GRAN % (test code 0.30 % = 6230997692) LYMPH % (test code = 36.2 % 736-9) MONO % (test code = 10.9 % 5905-5) EOS % (test code = 3.4 % 713-8) BASO % (test code = 0.6 % 706-2) GRAN MAT x10^3(ANC) 3.26 10*3/uL 1.88-7.09 (test code = 4079695028) IMM GRAN x10^3 (test <0.03 0.00-0.06 code = 4554801523) LYMPH x10^3 (test code 2.43 10*3/uL 1.32-3.29 = 731-0) MONO x10^3 (test code 0.73 10*3/uL 0.33-0.92 = 742-7) EOS x10^3 (test code = 0.23 10*3/uL 0.03-0.39 711-2) BASO x10^3 (test code 0.04 10*3/uL 0.01-0.07 = 704-7) Lab Interpretation Abnormal (test code = 74099-3) [id number] 19:54:00 Test Item Value Reference Range Interpretation Comments POCT PREG (test code = 1605) negative On board controls acceptable with present C Line (test code = 3574) POCT PREG LOT # (test code = 3575) [id number] POCT PREG TEST DATE (test code = 3576) Lab Interpretation (test code = Normal 47526-0) [facility]
--- NOTE | 2021-07-21 12:46 | EDPHYS ---
Physician Documentation [facility] Name: Jessica Fisher Age: 26 yrs Sex: Female : 1995 Arrival Date: 07/21/2021 Time: 11:24 Bed Waiting Private MD: ED Physician Greg Hassan HPI: 07/21 12:42 This 26 yrs old Female presents to ER via Ambulatory with complaints of Weakness, pm1 Dizziness. 12:42 The patient presents to the emergency department with weakness of the entire body, pm1 generalized weakness, Dizziness. Onset: The symptoms/episode began/occurred this morning. Context: occurred at home, occurred while the patient was getting up from bed. Associated signs and symptoms: Pertinent positives: dizziness, weakness, Pertinent negatives: fever, headache, nausea, chest pain, shortness of breath. Severity of symptoms: in the emergency department the symptoms have resolved. Patient's baseline: Neuro: alert and fully oriented, Motor: no deficits, Ambulation: walks without assistance. Current symptoms: Currently, the patient is not experiencing any symptoms. The patient has experienced similar episodes in the past. The patient has been recently seen at the [facility] Emergency Department, yesterday. 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 12:42 Neuro: Positive for dizziness, weakness, Negative for headache, numbness, tingling. 12:42 All other systems are negative. Exam: 12:42 Constitutional: This is a well developed, well nourished patient who is awake, alert, pm1 and in no acute distress. Head/Face: Normocephalic, atraumatic. 12:42 Skin: Warm, dry with normal turgor. Normal color with no rashes, no lesions, and no evidence of cellulitis. MS/ Extremity: Pulses equal, no cyanosis. Neurovascular intact. Full, normal range of motion. 12:42 Eyes: Exam is negative for acute changes, Extraocular movements: no acute changes, Conjunctiva: no acute changes, no injection, Sclera: no acute changes. 12:42 ENT: Exam is negative for acute changes, Mouth: no acute changes, Lips: normal, moist, Oral mucosa: normal, pink and intact, moist. 12:42 Cardiovascular: Exam negative for acute changes, Rate: normal, Rhythm: regular, Pulses: no pulse deficits are appreciated. 12:42 Respiratory: Exam negative for acute changes, respiratory distress, shortness of breath, Breath sounds: are clear throughout. 12:42 Neuro: Exam negative for acute changes, Orientation: is normal, Mentation: is normal, Motor: is normal, moves all fours, Sensation: is normal, no obvious gross deficits, Gait: is steady, at a normal pace, without difficulty. Vital Signs: 12:33 BP 127 / 90; Pulse 110; Resp 16; Temp 98.5; Pulse Ox 100% on R/A; iw 12:38 BP 124 / 75; Pulse 83; Resp 16; Pulse Ox 100% on R/A; iw MDM: 12:42 Data reviewed: vital signs. Counseling: I had a detailed discussion with the patient pm1 and/or guardian regarding: the historical points, exam findings, and any diagnostic results supporting the discharge/admit diagnosis, the need for outpatient follow up, to return to the emergency department if symptoms worsen or persist or if there are any questions or concerns that arise at home. 12:46 Patient medically screened. pm1 Administered Medications: No medications were administered Disposition: 18:52 Co-signature as Attending Physician, Greg Hassan MD I agree with the assessment and kdr plan of care. Disposition Summary: 07/21/21 12:46 Discharge Ordered Location: Home pm1 Problem: new pm1 Symptoms: have improved pm1 Condition: Stable pm1 Diagnosis - Dizziness and giddiness pm1 - Palpitations pm1 Followup: pm1 - With: Emergency Department - When: As needed - Reason: Worsening of condition Followup: pm1 - With: Private Physician - When: 2 - 3 days - Reason: Recheck today's complaints, Continuance of care, Re-evaluation by your physician Discharge Instructions: - Discharge Summary Sheet pm1 - Dizziness pm1 - Palpitations pm1 Forms: - Medication Reconciliation Form pm1 - Thank You Letter pm1 - Work release form pm1 - Antibiotic Education pm1 - Prescription Opioid Use pm1 Signatures: Greg Hassan MD MD kdr Williams, Irene, RN RN iw Vic Crawford, DANIEL MANAGER OF TRANSPORTATION pm1
--- NOTE | 2021-07-21 12:46 | ER ---
Nurse's Notes [facility] Name: Jessica Fisher Age: 26 yrs Sex: Female : 1995 Arrival Date: 07/21/2021 Time: 11:24 Bed Waiting Private MD: Diagnosis: Dizziness and giddiness;Palpitations Presentation: 07/21 12:30 Chief complaint: Patient states: diagnosed with COVID 3 weeks ago, was taking aspirin, iw and has hx of anemia and is worried that her blood count is low. 12:30 Method Of Arrival: Ambulatory iw 12:33 Coronavirus screen: At this time, the client does not indicate any symptoms associated iw with coronavirus-19. Ebola Screen: Patient negative for fever greater than or equal to 101.5 degrees Fahrenheit, and additional compatible Ebola Virus Disease symptoms Patient denies exposure to infectious person. Patient denies travel to an Ebola-affected area in the 21 days before illness onset. No symptoms or risks identified at this time. Initial Sepsis Screen: Does the patient meet any 2 criteria? No. Patient's initial sepsis screen is negative. Does the patient have a suspected source of infection? No. Patient's initial sepsis screen is negative. Risk Assessment: Do you want to hurt yourself or someone else? Patient reports no desire to harm self or others. Onset of symptoms was July 21, 2021. 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 Denies injuries from another. Nutritional iw screening: No deficits noted. Tuberculosis screening: No symptoms or risk factors identified. Fall Risk None identified. Assessment: 12:38 General: Appears in no apparent distress. Behavior is calm, cooperative. Pain: Denies iw pain. Neuro: Level of Consciousness is awake, alert, obeys commands, Oriented to person, place, time, situation, Moves all extremities. Full function. Cardiovascular: Patient's skin is warm and dry. Respiratory: Respiratory effort is even, unlabored, Respiratory pattern is regular, symmetrical. Derm: Skin is intact, is healthy with good turgor. Musculoskeletal: Range of motion: intact in all extremities. Vital Signs: 12:33 BP 127 / 90; Pulse 110; Resp 16; Temp 98.5; Pulse Ox 100% on R/A; iw 12:38 BP 124 / 75; Pulse 83; Resp 16; Pulse Ox 100% on R/A; iw ED Course: 11:24 Patient arrived in ED. ds1 11:37 Greg Hassan MD is Attending Physician. kdr 12:33 Triage completed. iw 12:34 Arm band placed on. iw 12:38 Holly Malave, COLLEEN is Primary Nurse. iw 12:39 No provider procedures requiring assistance completed. Patient did not have IV access iw during this emergency room visit. 12:42 Vic Crawford NP is PHCP. pm1 Administered Medications: No medications were administered Outcome: 12:46 Discharge ordered by . pm1 12:59 Patient left the ED. iw Signatures: Greg Hassan MD MD kdr Sanford, Demi ds1 Holly Malave RN RN iw Vic Crawford NP JEWELRY BENCH MOLDER pm1
[2021-07-21 13:14] VITALS: TEMP 98.5; O2SAT 100
[2021-07-21 13:19] VITALS: BP 124/75
== END 2021-07-21 12:59 | disposition home or self-care (01) ==
LOC: ER 11:23
DX: R00.2 Palpitations (principal)
CPT/HCPCS: 99281